=== PATIENT | male | born 1935 | race Caucasian/White ===

== ENCOUNTER → 2017-10-18 | Outpatient (CLI) | payer MEDICARE ==
--- NOTE | 2017-10-27 08:59 | RSPPFT ---
DATE OF PROCEDURE: 10/18/17 COMMENTS: Spirometry shows FVC of 4.0 at 99% of predicted, FEV1 of 2.9 at 94%, FEV1/FVC ratio is normal. Flow is normal at FEF 25, FEF 50, FEF 75 and FEF 25-75. There is no response after bronchodilator treatment. Lung volumes show residual volume is decreased. TLC is normal. Diffusion capacity is decreased. Flow volume loop indicates an obstructive pattern. Room air arterial blood gases show pH 7.38, PCO2 at 42, PO2 of 90, BiCarb of 24 and Saturation at 96%. 6-minute walk test shows no de-saturation. IMPRESSION: 1. Normal spirometry. 2. No response after bronchodilator treatment. 3. Mildly decreased lung volumes. 4. Mildly decreased diffusion capacity. 5. Blood gases show normal oxygenation. 6. 6-minute walk test shows no de-saturation.
== END ==
LOC: PHRSP 08:30
PROVIDERS: ATTEND Specialist
DX: J84.10 Pulmonary fibrosis, unspecified (principal)
CPT/HCPCS: 36600; 82805; 94060; 94618; 94726; 94729